=== PATIENT | female | born 1965 | race Caucasian/White ===

== ENCOUNTER 2023-06-13 05:14 | Emergency (ER) | payer BC, SELFPAY ==
[2023-06-13 05:24] VITALS: BP 163/103
--- NOTE | 2023-06-13 07:36 | ED.SKININJ ---
HPI-Injury
General
Chief Complaint: Bite
Source: patient
Exam Limitations: none
Time Seen by Provider: 06/13/23 07:09
Travel History
Have you had any contact with someone who has COVID-19?: No
Do you have any symptoms of coronavirus? Fever > 100 degrees, chills, cough, shortness of breath, sore throat, loss of taste or smell, muscle aches, or headache?: No
History of Present Illness-Injury
Initial Injury comments:
57-year-old female presents with dog bites to right wrist and left hand she sustained earlier this morning. The dog she just adopted started attacking her. She was bitten multiple times on the right wrist and left hand. Dog's vaccines are
up-to-date. Patient is unaware when her last tetanus vaccine was. She is healthy otherwise. She complains of pain and swelling to the right wrist area with wounds dorsally as well as left middle finger laceration.
Past History
Past History
ED Past Medical History: Other (Fascial dandruff, ulcerative colitis)
Social History
Tobacco: Non-smoker
Alcohol: None
Drug: Marijuana
Family History
Family History: Negative Diabetes, Hypertension or CAD
Phy Exam
Physical Exam
Physical Exam:
General: Well-appearing female no acute respiratory distress
Skin: 2 cm transverse laceration over the radiocarpal joint dorsally but appears deep with surrounding ecchymosis and swelling. There is a 1 cm volar laceration over middle phalanx of the left middle finger with underlying ecchymosis. No evidence
of tendon involvement of the finger. There are multiple other smaller punctures throughout the right hand and left hand.
Musculoskeletal: She maintains full range of motion of all fingers and thumbs bilateral hands and wrist.
Vascular: 2+ radial pulses bilaterally with brisk cap refill
Neurologic: Good sensation all fingers right hand
Course
Orders/Labs/Results
Orders:
Orders
06/13/23 06:24
CR Hand - Right Min 3 Views Urgent
Comment: r index finger
Reason For Exam: dog bites dorsum and mccormick aspect r hand, r thumb
Finger(s)/Thumb 2 View Lt [CR Finger(s)/thumb Min 2 Vw Lt] Urgent
Comment:
Reason For Exam: dog bite L middle finger
06/13/23 07:23
Tetanus/Diphth/Acelpertussis [Adacel] 0.5 ml IM .ONCE ONE
06/13/23 07:47
Ampicillin/Sulbactam 3 G [Unasyn] 3 gm 0.9% Sodium Chloride 100 ml [Nss] 100 ml IV NOW
06/13/23 07:52
Ketorolac [Toradol] 15 mg IV NOW STA
Vital Signs
Initial and Last Documented VS:
Initial Vital Signs
Temp Pulse Resp BP Pulse Ox
98.1 F 112 20 163/103 97
06/13/23 05:24 06/13/23 05:24 06/13/23 05:24 06/13/23 05:24 06/13/23 05:24
Last Documented Vital Signs
Temp Pulse Resp BP Pulse Ox
98.1 F 112 16 163/103 97
06/13/23 05:24 06/13/23 05:24 06/13/23 08:00 06/13/23 05:24 06/13/23 05:24
MDM/Problems Addressed
Differential Diagnosis Includes:
Dog bite to right wrist and left hand. Question possible joint violation of the right wrist puncture. There is ecchymosis there is swelling and discomfort. X-rays were personally visualized which demonstrate potential air within the radiocarpal
joint. Tetanus vaccine updated. Unasyn ordered. Discussed these findings with orthopedics on-call for recommendation for possible joint injury
*Critical Care Note
Total Time (30-74mins, 75-104mins- exclusive of procedures): Not Applicable
Update Note
Update Note:
Discussed with hand surgery and sent pictures of the wrist itself as well as the x-rays. Expressed my concern for potential air in the joint. Patient orthopedics recommendation the wounds were irrigated and washed and soaked. This was done with
water and Betadine. The wounds were then irrigated some more and dressed with antibacterial ointment and a gauze wrap. No sutures were applied to the wound. She received a dose of Unasyn here and will be discharged on Augmentin with close
follow-up with hand specialist. Stable for discharge. Return precautions were given
ED Attending Note
-
Portions of this chart may have been created with voice recognition software.� Occasional wrong word or��sound alike� substitutions may have occurred due to the inherent limitations of voice recognition software.
Discharge Plan
Departure
Patient Disposition: Home (Routine Discharge)
Date of Disposition: 06/13/23
Time of Disposition: 10:00
Patient with high blood pressure during this ER visit?: No
Discharge Problem:
Dog bite
Instructions: Animal Bites (DC)
Prescriptions:
New
amoxicillin-pot clavulanate 875-125 mg tablet
1 tab PO BID Qty: 20 0RF
No Action
sulfamethoxazole-trimethoprim 1 TABLET tablet
1 tab PO BID Qty: 14 0RF
cephalexin 500 MG capsule
500 mg PO QID Qty: 28 0RF
Referrals:
Aleksandra Cagle NP [Family Provider] -
Johnathan Whitlock MD [Active] -
Activity Restrictions/Additional Instructions:
Use Augmentin as directed. Please follow-up with hand specialist for next available appointment. Change dressing daily. Return if you develop more pain swelling redness fever or other concerning finding.
Interventions
Interventions:
*Risk Screen - Suicide Last Done: 06/13/23 05:24
*General Assessment Last Done: 06/13/23 05:24
*Neglect/Abuse Screening Last Done: 06/13/23 05:24
ED- Fall Risk Assessment Last Done: 06/13/23 06:05
ED-Skin Assessment Last Done: 06/13/23 06:05
Discharge Date and Time
Print Language: HONDURAN
[2023-06-13] MEDS: UNASYN IV (08:13)
[2023-06-13] MEDS: TORADOL 15 MG IV (08:14)
[2023-06-13] MEDS: ADACEL 0.5 ML IM (08:18)
== END 2023-06-13 10:34 | disposition home or self-care (01) ==
LOC: EMR 05:14
PROVIDERS: EMERGENCY PHYSICIAN Emergency Medicine; FAMILY PHYSICIAN Nurse Practitioner Women's Health
DX: S61.253A Open bite of left middle finger without damage to nail, initial encounter (principal); S61.551A Open bite of right wrist, initial encounter; W54.0XXA Bitten by dog, initial encounter; Z23 Encounter for immunization
CPT/HCPCS: 99283; 96365; 96375; 90471; 73130; 73140; 90715